=== PATIENT | female | born 1945 | race Caucasian/White ===

== ENCOUNTER 2018-08-09 17:12 | Emergency (ER) | payer MEDICARE ==
[2018-08-09 17:56] LABS: #Basophils 0.1 thou/uL (0.0-0.2); #Eosinphils 0.1 thou/uL (0.0-0.7); #Lymphocytes 1.5 thou/uL (1.20-3.40); #Monocytes 0.3 thou/uL (0.11-0.59); #Neutrophils 5.5 thou/uL (1.40-6.50); %Basophils 0.9 % (0.0-1.0); %Eosinophils 1.9 % (0.0-10.0); %Lymphocytes 19.3 % (21.0-51.0); %Monocytes 4.1 % (0.0-10.0); %Neutrophils 73.7 % (42.0-75.0); Hemoglobin 15.4 g/dL (12.0-16.0); Mean Corpuscular Hemoglobin 29.5 pg (27.0-31.0); Mean Corpuscular Volume 92.1 fL (78.0-98.0); Mean Platelet Volume 7.3 fL (7.4-10.4); Platelet Count 356 thou/uL (130-400); RBC Distribution Width 12.8 % (11.5-14.5); Red Blood Cell (RBC) Count 5.23 mill/uL (4.20-5.40); White Blood Cell (WBC) Count 7.5 thou/uL (4.8-10.8)
[2018-08-09 18:15] LABS: ALT (SGPT) 20 U/L (8-55); AST (SGOT) 21 U/L (5-34); Albumin 4.9 g/dL (3.4-4.8); Alkaline Phosphatase 102 U/L (40-150); Anion Gap 18 mmol/L (10-20); BUN (Urea Nitrogen) 25 mg/dL (9.8-20.1); Bilirubin, Total 0.6 mg/dL (0.2-1.2); CK (CPK) 125 U/L (29-168); Calc. Creatinine Clearance 0 mL/min (70-130); Calcium 10.2 mg/dL (7.8-10.44); Carbon Dioxide 24 mmol/L (23-31); Chloride 104 mmol/L (98-107); Estimated GFR-MDRD 64; Globulin 3.5 g/dL (2.4-3.5); Glucose 177 mg/dL (83-110); Potassium 3.9 mmol/L (3.5-5.1); Protein, Total 8.4 g/dL (6.0-8.3); Sodium 142 mmol/L (136-145)
[2018-08-09] MEDS ORDERED: traMADol HCl 50 MG TAB ONE (18:29)
--- NOTE | 2018-08-09 18:59 | RAD ---
CHEST ONE VIEW: 08/09/18 HISTORY: Abnormal EKG. Heart size and mediastinum are within normal limits. There are atherosclerotic changes of the aorta. The lungs are clear of any infiltrative process. There are no significant bony findings. IMPRESSION: No active intrathoracic disease. POS: [facility]
[2018-08-09] MEDS ORDERED: Gabapentin 100 MG CAP PO SCH (19:45)
[2018-08-09 20:03] LABS: Bilirubin Negative (Negative); Blood, Urine Negative (Negative); Clarity CLEAR (Clear); Glucose, Urine (Dipstick) Negative (Negative); Leukocyte Negative (Negative); Nitrite Negative (Negative); Protein, Urine (Dipstick) Negative (Neg-Trace); Specific Gravity, Urine 1.009 (1.002-1.036); Urobilinogen 0.2 mg/dL (0.2-1.0); pH, Urine 6.5 (5.0-9.0)
== END 2018-08-09 20:25 | disposition home or self-care (01) ==
LOC: ERS 17:12
DX: R94.31 Abnormal electrocardiogram [ECG] [EKG] (principal); R73.03 Prediabetes; F32.9 Major depressive disorder, single episode, unspecified; Z79.899 Other long term (current) drug therapy; Z79.891 Long term (current) use of opiate analgesic
CPT/HCPCS: 36415; 71045; 80053; 81003; 82550; 83690; 84484; 85025; 93005